=== PATIENT | female | born 1990 | race Caucasian/White ===

== ENCOUNTER 2022-01-28 11:23 | Outpatient (CLI) | payer BC, SELFPAY ==
[2022-01-28 12:25] LABS: Free T4 Free Thyroxine* 0.99 ng/dL (0.70-1.85)
== END 2022-01-28 11:24 | disposition home or self-care (01) ==
PROVIDERS: PCP Family Medicine; Visit Provider Internal Medicine Endocrinology, Diabetes & Metabolism
DX: E05.00 Thyrotoxicosis with diffuse goiter without thyrotoxic crisis or storm (principal)
CPT/HCPCS: 36415; 84439; 84443

== ENCOUNTER 2022-10-07 07:50 | Outpatient (CLI) | payer BC, SELFPAY | END 2022-10-07 07:51 | disposition home or self-care (01) | LOC: NFLDREF 12:07 | PROVIDERS: PCP Family Medicine; Referring Provider Family Medicine; Visit Provider Family Medicine | DX: I10 Essential (primary) hypertension (principal); R73.03 Prediabetes | CPT/HCPCS: 80048 ==

== ENCOUNTER 2022-10-14 08:15 | Outpatient (CLI) | payer BC, SELFPAY | END 2022-10-14 08:16 | disposition home or self-care (01) | LOC: NFLDREF 10-15 06:35 | PROVIDERS: PCP Family Medicine; Referring Provider Family Medicine; Visit Provider Family Medicine | DX: Z13.6 Encounter for screening for cardiovascular disorders (principal); Z13.220 Encounter for screening for lipoid disorders | CPT/HCPCS: 80061 ==

== ENCOUNTER 2022-10-21 07:55 | Outpatient (CLI) | payer BC, SELFPAY | END 2022-10-21 07:56 | disposition home or self-care (01) | PROVIDERS: PCP Family Medicine; Visit Provider Family Medicine | DX: R10.11 Right upper quadrant pain (principal) | CPT/HCPCS: 76705 ==

== ENCOUNTER 2022-12-22 08:34 | Day surgery (SDC) | payer BC, SELFPAY ==
[2022-12-22] VITALS (15 sets, daily range): BP systolic 140–161; BP diastolic 87–95; PULSE 64–88; RESP 16; TEMP 36.3–36.7; O2SAT 94–98; BMI 40.4
[2022-12-22] MEDS: LACTATED RINGERS 1000 ML 1,000 ML 100 ML IV ×2 (08:45→12:23)
[2022-12-22] MEDS: SODIUM CHLORIDE 0.9 % (FLUSH) 10 ML SYRINGE IVF (09:24)
[2022-12-22 09:31] LABS: Ur HCG Qualitative* Negative (Negative)
--- NOTE | 2022-12-22 10:36 | W.ANESCHARGE ---
Anesthesia Charges Start Date/Time Anesthesia Start Date: 12/22/22 Anesthesia Start Time: 10:48 Stop Date/Time Anesthesia Stop Date: 12/22/22 Anesthesia Stop Time: 12:22
[2022-12-22] MEDS: BUPIVACAINE 0.5% 30 ML INJECTION (11:17)
--- NOTE | 2022-12-22 12:03 | W.ANESCHARGE ---
Anesthesia Charges Start Date/Time Anesthesia Start Date: 12/22/22 Anesthesia Start Time: 10:48 Stop Date/Time Anesthesia Stop Date: 12/22/22 Anesthesia Stop Time: 12:22
--- NOTE | 2022-12-22 12:11 | PM.GSPRC ---
Operative Note Date of procedure: 12/22/22 Pre-op diagnosis: Biliary dyskinesia Post-op diagnosis: Same Type of Procedure: Laparoscopic cholecystectomy Indications: Patient is a 32-year-old female who presented to clinic with symptoms and workup consistent with biliary dyskinesia. HIDA scan was performed which demonstrated ejection fraction of 14%. I had a detailed conversation with the patient regarding the diagnosis of biliary dyskinesia. We discussed the treatment options including observation with diet modification and laparoscopic cholecystectomy. We discussed the risks of surgery (including but not limited to) the risks of bleeding, infection, injury to other structures in the abdomen including bile duct injury, bile leak and conversion to an open operation. We discussed the possibility that the patient's pain not improve with surgery. We discussed the possibility of permanent post-operative diarrhea that may require medical management. Additionally, the conceivably of complications requiring additional surgery or further hospitalization were also discussed including the risks of LA, respiratory failure, stroke and blood clots. The patient voiced an understanding of our conversation, had the opportunity to ask questions, agreed to accept the risks of surgery and asked that we proceed with surgery. Procedure Description: After discussing the risks and benefits of the procedure, the patient signed informed consent.? The operative site was marked and the patient was brought to the operating room and placed on the operating table in supine position.? Care was taken to pad the patient's pressure points.?? The patient was then intubated by anesthesia.?? The operative site was then prepped and draped in the usual sterile fashion.? A time-out was then performed. Entrance to the abdomen was gained via a 5 mm Visiport in the left upper quadrant. The abdomen was insufflated and briefly surveyed for signs of injury. There was none. There was evidence of lower midline adhesions, of omentum to the anterior abdominal wall. These remained outside of the operative field. An 11 mm umbilical port was placed as well as 2 working ports along the right costal margin. Patient was then placed in reverse Trendelenburg position with the right side up. The gallbladder fundus was grasped and retracted cephalad. The infundibulum was grasped. A combination of hook cautery and blunt dissection was used to carefully dissect out the cystic duct and artery. There was a large cystic node overlying the artery. Two clips were proximal and one clip distal on the cystic artery just above the node. The artery was transected with scissors and carefully peeled down. The cystic duct was then carefully dissected out. A posterior accessory artery was seen behind the duct and going into the gallbladder. This was small in caliber and away from the portal structures. Two clips were applied proximal and one distal with the artery transected with scissors. Once the cystic duct was adequately cleared 2 clips were applied proximally and 1 clip distally and transected with the scissors. The gallbladder was then taken off of the liver bed and removed from the abdomen using an Endo-Catch bag. The gallbladder bed was surveyed for hemostasis, Which was excellent. The umbilical port fascia was closed with 0 Vicryl via the Dariel Marci. All other ports were removed under direct visualization. The skin was closed with absorbable subcuticular suture. Instrument sponge and needle counts were correct at the end of the case. The patient was then woken and transferred to the PACU in stable condition. Findings: Normal gallbladder in appearance. Anesthesia: GETA Surgeon: Araceli Lewis MD Estimated blood loss (mL): 5 Specimen: Gallbladder Condition: stable Disposition: PACU
[2022-12-22] MEDS: fentaNYL 100 MCG/2 ML inj 50 MCG IVP ×2 (12:51→12:58)
[2022-12-22] MEDS: OXYCODONE 5 MG TABLET PO (14:11)
== END 2022-12-22 14:48 | disposition home or self-care (01) ==
PROVIDERS: PCP Family Medicine; Visit Provider Surgery
PROC: 0FT44ZZ Resection of Gallbladder, Percutaneous Endoscopic Approach (ICD-10-PCS; CPT 47562; principal; 2022-12-22 10:45)
DX: K82.8 Other specified diseases of gallbladder (principal)
CPT/HCPCS: 47562; 00790; 81025; 88304; A9270; J0330; J1100; J1170; J1885; J2250; J2405; J2704; J2710; J3010; J3490; J7120

== ENCOUNTER 2023-09-18 11:33 | Outpatient (CLI) | payer BC, SELFPAY | END 2023-09-18 11:34 | disposition home or self-care (01) | LOC: NFLDREF 11:34 | PROVIDERS: PCP Family Medicine; Visit Provider Obstetrics & Gynecology | DX: Z13.220 Encounter for screening for lipoid disorders (principal) | CPT/HCPCS: 80061 ==

== ENCOUNTER 2025-01-07 14:43 | Outpatient (CLI) | payer BC, SELFPAY ==
--- OUTSIDE RECORDS SUMMARY | 2025-01-08 00:23 | XMS_ITS | Clinical Summary ---
Author Organization [facility] Address [address] [place] [id number] Care Team Providers Care Maintenance Person Name Role Phone Alexi Dunn MD Primary Care Provider Allergies No known active allergies Medications methIMAzole (TAPAZOLE) 10 mg tablet Take 20 mg by mouth. 1 Active metoprolol succinate (TOPROL XL) 50 mg sustained-relea se tabletIndicatio ns:HTN (hypertension) Take 1 Tablet (50 mg) by mouth once daily. 90 Tablet 1 3 Active tirzepatide (Mounjaro) 15 mg/0.5 mL pen Inject 15 mg every week by subcutaneous route for 28 days. 2 mL 05/05/2023 3:29 PM CDT 3 Active Social History Tobacco Use Types Packs/Day Years Used Date Smoking Tobacco: Never Assessed Social Connections Answer Date Recorded Frequency of Communication with Friends and Fami ly Not on file 07/10/2021 Financial Resource Strain Answer Date R ecorded Difficulty of Paying Living Expenses Not on file 07/10/2021 Difficulty of Paying Living Expenses Not on file 07/10/2021 Comments Unknown Sex and Gender Information Value Date Recorded Sex Assigned at Not on file Legal Sex Female 12:37 PM [employer]ING [employer] Gender Identity Not on file Sexual Orientation Not on file Plan of Treatment Health Maintenance Due Date Last Done Comments Tetanus booster 01/19/1999 Depression screening for age 12+ 2000 HIV for age 15-65 01/19/2003 BMI (ht and wt on same day) for age 18+ 01/19/2006 Hepatitis C screening for age 18-79 01/19/2006 Hepatitis B series for 19+ (1 of 3 - 19+ 3-dose series) 01/19/2007 COVID-19 vaccine series (2023- season) 2024 02/16/2021, 01/26/2021 Influenza Vaccine (#1) 2025 Pap test for age 21-65 09/17/2026 , 09/18/2023, 03/24/2017, Additional history exists Pneumococcal series for age 6-49 Aged Out No longer eligible based on patient's age to complete this topic Procedures Procedure Name Priority Date/Time Associated Diagnosis Comments HPV HIGH RISK Routine 09/18/2023 11:40 AM CDT from Last 3 Months or Most Recently Relevant to Health Maintenance Results * HPV HIGH RISK (09/18/2023 11:40 AM CDT) TYPE 16 Negative Negative 09/22/2023 5:59 AM CDT [facility] TYPE 18 Negative Negative 09/22/2023 5:59 AM CDT [facility] OTHER HIGH RISK TYPES Negative Negative 09/22/2023 5:59 AM CDT [facility] Other (Cervical) 09/18/2023 11:40 AM CDT 09/19/2023 4:59 PM CDT Narrative [facility] - 09/22/2023 5:59 AM CDT HPV types 16, 18, 31, 33, 35, 39, 45, 51, 52, 56, 58, 59, 66 and 68 DNA were undetectable or below the pre-set threshold. Methodology: Yoli Prabha 4800 HPV Test us Minerva Gusman MD MICROBIOLOGY Fi nal Result [facility] [address] [place] [address], from Last 3 Months or Most Recently Relevant to Health Maintenance Insurance [facility] Care Teams Maintenance Person Relationship Specialty Start Date End Date Alexi Dunn MD [address] [place] [id number] PCP - General Family Practice 12/21/20
== END 2025-01-07 14:44 | disposition home or self-care (01) ==
PROVIDERS: PCP Family Medicine; Visit Provider Family Medicine
DX: Z00.00 Encounter for general adult medical examination without abnormal findings (principal); I10 Essential (primary) hypertension; E05.00 Thyrotoxicosis with diffuse goiter without thyrotoxic crisis or storm; E66.01 Morbid (severe) obesity due to excess calories; Z68.41 Body mass index [BMI] 40.0-44.9, adult; R73.03 Prediabetes
CPT/HCPCS: 80048; 80061; 84439; 84443

== ENCOUNTER 2025-03-28 07:07 | Outpatient (CLI) | payer BC, SELFPAY ==
--- NOTE | 2025-03-28 07:15 | MR_ITS ---
[address] [address] Phone:?[phone] Fax:?[phone] Referring Physician Information: Antolin Hanks M.D. [id number] [facility] [address] Phone:?[phone] Fax:?[phone] Patient:Anuradha Vera D.O.B:?1990 Sex:?Female Phone:?[phone] [facility] MRN:?[id number] Exam Date:?03/28/2025 EXAM: MRI EXAMINATION OF THE RIGHT KNEE CLINICAL INFORMATION: Right knee pain. Popping. Injury. No history of surgery to this area. Possible meniscus tear. TECHNICAL INFORMATION: Coronal PD and STIR. Axial PD and T2 fat saturation. Sagittal PD and PD fat saturation images acquired. No prior studies for comparison. INTERPRETATION: Bones: No appreciable subchondral edema signal or cystic change. No evidence for an occult fracture, osseous contusion or stress reaction. No other abnormal bone marrow edema pattern is identified. Ligaments and tendons: The medial collateral ligament is intact, without acute sprain or tear. The iliotibial band, fibular collateral ligament, biceps femoris tendon and popliteus tendon all are intact. Series 4 images 14 through 17 as well as series 6 image 16 demonstrate a poorly defined and moderate grade appearance of partial tearing involving the mid to proximal portion of the anterior cruciate ligament. Adjacent soft tissue edema signal appears present, and this may be more recent. The posterior cruciate ligament is intact. Extensor Mechanism: The patellar and quadriceps tendons are intact. The medial and lateral retinacula are intact. Knee Joint: There is no knee joint effusion. There is a small and slender popliteal cyst. There is no discrete loose body seen within the joint. Medial Compartment: There is no evidence for discrete medial meniscal tear. No displaced flap fragment or parameniscal cyst. There is no focal chondral defect. No other significant changes of chondromalacia. Lateral Compartment: There is no evidence for discrete lateral meniscal tear. No displaced flap fragment or parameniscal cyst. There is no focal chondral defect. No other significant changes of chondromalacia. Patellofemoral articulation: Series 4 image 10 demonstrates a focal high-grade vertical chondral fissure involving the mid surface of the medial patellar facet. No other significant chondromalacia. CONCLUSION: 1. Residua of ACL injury with poorly defined and moderate grade partial tearing involving the mid to proximal portion of the ligament. Please correlate clinically with any degree of ACL laxity. Adjacent soft tissue edema signal, and this may be a more recent injury. No evidence for associated osseous contusion pattern. 3. No evidence for a meniscal tear. 4. No other residua of a ligament injury involving the knee. 5. There is a focal high-grade vertical chondral fissure involving the medial patellar facet. No chondral defect involving the knee. 6. No evidence for a joint effusion. KES Electronically signed on 03/28/2025 8:46:00 AM by Boubacar Rizzo M.D.
== END 2025-03-28 07:08 | disposition home or self-care (01) ==
LOC: MRI 07:08
PROVIDERS: PCP Family Medicine; Visit Provider Orthopaedic Surgery Sports Medicine
DX: M25.561 Pain in right knee (principal); S83.511A Sprain of anterior cruciate ligament of right knee, initial encounter
CPT/HCPCS: 73721

== ENCOUNTER 2025-07-09 12:58 | Outpatient (CLI) | payer BC, SELFPAY ==
--- NOTE | 2025-07-09 13:15 | CRLHL7_ITS ---
For Patients: As a result of the Century Cures Act, medical imaging exams and procedure reports are released immediately into your electronic medical record. You may view this report before your referring provider. If you have questions, please contact your health care provider. INDICATION: Menorrhagia COMPARISON: None. TECHNIQUE: 2D dalal-scale and color Doppler images were acquired of the pelvis using a transabdominal and transvaginal approach. Transvaginal imaging performed to better visualize the endometrial stripe and ovaries. FINDINGS: section scar noted. No uterine fibroid. Uterus measures 10.5 cm in length by 5.3 cm in AP diameter by 7.1 cm in transverse dimension. Cervical nabothian cysts are present. The endometrial lining measures 4.4 mm in composite thickness. The right ovary measures 3.6 x 1.9 x 1.7 cm in size and the left ovary measures 3.2 x 2.4 x 2.7 cm. The ovaries demonstrate normal arterial and venous blood flow on color Doppler analysis. There are no suspicious fluid collections within the cul-de-sac. Echogenic focus within the left ovary measures 9 x 7 x 10 millimeters. Simple cyst left ovary measures 18 x 17 x 15 millimeters. IMPRESSION: Endometrial thickness 4.4 millimeters. 10 millimeter left ovarian dermoid appears to be present. Dictated by Hilario Fonseca MD @ 07/09/2025 3:33:24 PM (Electronically Signed)
== END 2025-07-09 12:59 | disposition home or self-care (01) ==
LOC: US 12:58
PROVIDERS: PCP Family Medicine; Visit Provider Obstetrics & Gynecology
DX: N92.0 Excessive and frequent menstruation with regular cycle (principal); R93.89 Abnormal findings on diagnostic imaging of other specified body structures; D27.1 Benign neoplasm of left ovary
CPT/HCPCS: 76830; 76856; 84443